=== PATIENT | female | born 1955 | race Caucasian/White ===

== ENCOUNTER 2019-01-30 14:57 | Emergency (ER) | payer OTHER ==
[~2019-01-30] VITALS: Ht 154.9 cm; Wt 71.2 kg
[2019-01-30 15:04] VITALS: Ht 154.9 cm; Wt 71.2 kg
[2019-01-30 15:55] LABS: BASOPHIL % 0.2 % (0-2); PLATELET COUNT 193 x10^3mcL (130-400); RED CELL DISTRIBUTION WIDTH 13.5 % (11.5-14.5)
[2019-01-30 16:02] LABS: CHLORIDE SERUM 103 mmol/L (98-107); CREATININE SERUM 0.9 mg/dL (0.6-1.0); GFR1 > 60 mL/min; GLUCOSE SERUM 125 mg/dL (74-106); POTASSIUM SERUM 3.3 mmol/L (3.5-5.1); SODIUM SERUM 139 mmol/L (136-145)
[2019-01-30 16:06] LABS: ALBUMIN 4.4 g/dL (3.4-5.0); ALKALINE PHOSPHATASE 93 U/L (46-116); ALT/SGPT 32 U/L (14-59); AST/SGOT 31 U/L (15-37); BILIRUBIN TOTAL 1.13 mg/dL (0.20-1.00); LIPASE 94 IU/L (73-393)
[2019-01-30 16:07] LABS: TOTAL PROTEIN, SERUM 8.4 g/dL (6.4-8.2)
[2019-01-30 19:58] VITALS: BP 110/68
== END 2019-01-30 19:58 | disposition home or self-care (01) ==
LOC: ED 14:57
PROVIDERS: Emergency Medicine
DX: R10.33 Periumbilical pain (principal); R11.2 Nausea with vomiting, unspecified; R19.7 Diarrhea, unspecified
CPT/HCPCS: 87046; 87046-59; J1885; J2405; J7030